=== PATIENT | male | born 1950 | race Caucasian/White ===

== ENCOUNTER 2019-11-04 21:41 | Emergency (ER) | payer OTHER, BC ==
[~2019-11-04] VITALS: Ht 172.7 cm; Wt 93.0 kg
[2019-11-04 21:41] VITALS: BP 115/75
--- NOTE | 2019-11-04 21:41 | NUR ---
Ambulated to Chair D. Accompanied by [facility].
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
--- NOTE | 2019-11-04 21:55 | NUR ---
PATIENT EXAMINED BY DR. LOZNAO. PATIENT MEDICALLY CLEARED AND RELEASED IN CUSTODY IN STABLE CONDITION. ORIGINAL PRE-BOOK FORM GIVEN TO [facility] OFFICER.
== END 2019-11-04 21:55 | disposition home or self-care (01) ==
LOC: MED 21:41
DX: Z02.89 Encounter for other administrative examinations (principal); Z98.890 Other specified postprocedural states; V89.2XXA Person injured in unspecified motor-vehicle accident, traffic, initial encounter; Y93.89 Activity, other specified; Y92.828 Other wilderness area as the place of occurrence of the external cause; Y99.8 Other external cause status
CPT/HCPCS: 99283